=== PATIENT | female | born 1990 | race African-American/Black ===

== ENCOUNTER 2016-05-27 20:56 | Emergency (ER) | payer OTHER ==
--- NOTE | ~2016-05-27 | CR173 ---
[facility] A Service [facility] RADIOLOGY TEXT RESULTS PATIENT: BARB ROSA LOCATION: SED : 90 UNIT #: [id number] AGE: [address]: CATALINO PRADO SEX: F ORDER DR: [id number] [place] [id number] E MR#: [id number] Acc #: [id number] NAME: BARB ROSA : 1990 SEX: F STUDY DATE/TIME: 05/27/2016 20:41 UNIT: SED ROOM: STUDY DESCRIPTION: CR Knee 3 Views Rt Attending Physician: Catalino Prado Ordering Physician: Staff Doctor Not On Primary Care Physician: No Primary Care Physician MEDICAL IMAGING REPORT This report is preliminary unless electronic signature is present. EXAM Right knee. DATE OF EXAM 05/27/2016 HISTORY Knee pain after falling and twisting yesterday. TECHNIQUE 3 views of the knee were obtained. FINDINGS 3 views of the knee show marginal osteophyte formation in both the medial and lateral compartments accompanied by mild joint space narrowing. There is medial subluxation of the distal femur with respect to the tibial plateau. A small osteophyte is also seen in the upper patellar pole. There is no evidence of fracture or effusion. The patella tracks midline. When compared to the previous examination in 2008, osteophyte formation and degenerative changes are new. 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 These osteophytes are new since the previous exam in 2008. There is relative subluxation of the distal femur medially with respect to the tibial plateau and this was seen on the previous exam as well. No acute bony abnormalities are seen. No evidence of an effusion. Dictated by... Antony Fabian M.D. [facility] A Service [facility] RADIOLOGY TEXT RESULTS PATIENT: BARB ROSA LOCATION: SED : 90 UNIT #: [id number] AGE: [address]: CATALINO PRADO SEX: F ORDER DR: THIS IS AN ELECTRONICALLY VERIFIED REPORT Antony Fabian M.D. at 05/28/2016 10:08 AM GERALD/phil TD: 05/27/2016 22:33 JOB #: [id number] MEDICAL IMAGING REPORT Page 1 of 1
[~2016-05-27 20:56] MED LIST: IBUPROFEN800 MG PO; VICODIN 5/500 T1 TAB PO
== END 2016-05-27 21:57 | disposition home or self-care (01) ==
LOC: SED 20:56
DX: S76.111A Strain of right quadriceps muscle, fascia and tendon, initial encounter (principal); W10.9XXA Fall (on) (from) unspecified stairs and steps, initial encounter; Y92.009 Unspecified place in unspecified non-institutional (private) residence as the place of occurrence of the external cause
CPT/HCPCS: 29530; 73562; 99283